=== PATIENT | male | born 1960 | race American Indian/Alaskan Native ===

== ENCOUNTER 2018-11-26 22:34 | Emergency (ER) | payer OTHER ==
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
[2018-11-26] MEDS ORDERED: NORCO 5/325 PO ONE (22:54)
[2018-11-26] MEDS ORDERED: ZOFRAN ODT PO ONE (22:54)
[2018-11-26] MEDS ORDERED: IBUPROFEN PO ONE (22:54)
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
[2018-11-27 01:59] VITALS: BP 178/123
== END 2018-11-27 02:08 | disposition home or self-care (01) ==
LOC: ED 22:34
DX: S29.012A Strain of muscle and tendon of back wall of thorax, initial encounter (principal); S16.1XXA Strain of muscle, fascia and tendon at neck level, initial encounter; S46.911A Strain of unspecified muscle, fascia and tendon at shoulder and upper arm level, right arm, initial encounter; S86.812A Strain of other muscle(s) and tendon(s) at lower leg level, left leg, initial encounter; V49.49XA Driver injured in collision with other motor vehicles in traffic accident, initial encounter; Y93.89 Activity, other specified; Y92.410 Unspecified street and highway as the place of occurrence of the external cause; Y99.8 Other external cause status
CPT/HCPCS: 72040; 72070; 72100; Q0162

== ENCOUNTER 2021-12-23 14:35 | Outpatient (CLI) | payer MEDICARE, OTHER ==
--- NOTE | 2021-12-24 08:51 | Ultrasound Report ---
ULTRASOUND TESTICULAR DOPPLER COMPLETE HISTORY: N50.8 SCROTAL PAIN. TECHNIQUE: Grayscale ultrasound with color and spectral Doppler imaging performed. COMPARISON: None FINDINGS: The right testicle measures 3.4 x 2.3 x 2.6 cm. The left testicle measures 3.6 x 2.2 x 2.1 cm. There is no evidence for testicular mass, cyst or calcifications. Spectral Doppler waveforms demonstrate ar terial flow to both testicles. Color Doppler imaging suggest mild hyperemia to the left testicle comp ared to the right. The epididymides are normal size and contour. A 5 mm right epididymal head cyst is identified. No hyp eremia of the epididymides is suspected to suggest epididymitis. Small to medium bilateral hydroceles are identified containing debris. No septation. No significant varicocele. IMPRESSION: No evidence for mass or torsion. Color Doppler imaging suggest mild hyperemia involving the left testicle, left orchitis could be cons idered. Please correlate with the patient's clinical presentation. Small to medium bilateral slightly complex hydroceles containing debris. 5 mm right epididymal head cyst. Signer Name: Dwight Santana Jr, MD Signed: 12/24/2021 8:47 AM Workstation Name: [id number]
== END 2021-12-23 14:36 | disposition home or self-care (01) ==
LOC: US 14:35
PROVIDERS: ATTEND Urology
DX: L72.0 Epidermal cyst (principal)
CPT/HCPCS: 93975

== ENCOUNTER 2022-02-25 06:33 | Day surgery (SDC) | payer MEDICARE ==
[2022-02-25] MEDS ORDERED: ONDANSETRON 4 MG/2 ML INJ IV PRN (08:20)
[2022-02-25] MEDS ORDERED: HYDROmorphone 0.5 MG/0.5 ML INJ IV PRN (08:20)
--- NOTE | 2022-02-25 08:21 | Anesthesia Day of Surgery ---
Anesthesia Day of Surgery - Day of Surgery Patient Examined: Yes Patient H&P Reviewed: Yes Patient is NPO: Yes
--- NOTE | 2022-02-25 08:22 | Anesthesia Consultation ---
Anesthesia Consult and Med Hx Date of service: 02/25/22 - Airway Anesthetic Teeth Evaluation: Good (Some missing) ROM Head & Neck: Adequate Mental/Hyoid Distance: Adequate Mallampati Class: Class II Intubation Access Assessment: Good - Pre-Operative Health Status ASA Pre-Surgery Classification: ASA2 Proposed Anesthetic Plan: General - Pulmonary Hx Smoking: No Hx Respiratory Symptoms: Yes (Chronic bronchitis; uses MDI prn) Hx Sleep Apnea: No - Cardiovascular System Hx Hypertension: Yes (Pt very active-goes to gym) - Gastrointestinal Hx Gastroesophageal Reflux Disease: No - Hematic Hx Sickle Cell Disease: No - Other Systems Hx Obesity: Yes
[2022-02-25] MEDS ORDERED: ceFAZolin/Water 2 GM/20 ML 2 GM/20 ML SYRINGE IV ONE (08:24)
[2022-02-25] MEDS ORDERED: propofoL 200 MG/20 ML VIAL IV ONE (08:36)
[2022-02-25] MEDS ORDERED: fentaNYL 100 MCG/2 ML INJ ONE (08:36)
[2022-02-25] MEDS ORDERED: LIDOCAINE MPF (2%) 20 MG/1 ML VIAL 5 ML ONE (08:36)
[2022-02-25] MEDS ORDERED: LACTATED RINGERS 1,000 ML IV SCH (09:00)
[2022-02-25] MEDS ORDERED: ePHEDrine SULFATE 50 MG/1 ML INJ ONE (09:30)
[2022-02-25] MEDS ORDERED: GLYCOPYRROLATE 0.4 MG/2 ML INJ ONE (09:51)
[2022-02-25] MEDS ORDERED: LACTATED RINGERS 1,000 ML ONE (09:56)
[2022-02-25] MEDS ORDERED: SODIUM CHLORIDE 0.9% IRR 1,500 ML BOTTLE IR ONE (10:00)
--- NOTE | 2022-02-25 10:17 | Short Stay Summary ---
Short Stay Documentation Date of service: 02/25/22 - History H&P: obtained from office - Allergies and Medications Current Medications: Allergies No Known Allergies Allergy (Unverified 11/26/18 22:38) Home Medications Medication Instructions Recorded Confirmed Last Taken Type Cyclobenzaprine [Flexeril] 10 mg PO TID PRN #20 tablet 11/26/18 Unknown Rx HYDROcodone/ACETAMINOPHEN [[place] 1 each PO Q6H PRN #10 tablet 11/26/18 Unknown Rx 5-325 Tablet] Ibuprofen 800 mg PO Q6H PRN #15 tablet 11/26/18 Unknown Rx Active Medications Hydromorphone HCl (Hydromorphone 0.5 Mg/0.5 Ml Inj) 0.25 mg IV Q10MIN PRN PRN Reason: Pain, Moderate (4-6) Stop: 02/25/22 20:00 Hydromorphone HCl (Hydromorphone 0.5 Mg/0.5 Ml Inj) 0.5 mg IV Q10MIN PRN PRN Reason: Pain , Severe (7-10) Stop: 02/25/22 20:00 Lactated Ringer's (Lactated Ringers) 1,000 mls @ 125 mls/hr IV DIRECT [place] - Brief post op/procedure progress note Date of procedure: 02/25/22 Pre-op diagnosis: bilat hyroceles Post-op diagnosis: same Procedure: bilat hydrocelectomy with barbara Anesthesia: GETA Surgeon: VERITO SMITH Estimated blood loss: minimal Pathology: list (sac x 2) Specimen disposition: to lab Condition: stable - Hospital course Hospital course: norco on chart - Disposition Condition at discharge: Stable Disposition: 01 HOME / SELF CARE / HOMELESS Short Stay Discharge Plan Follow up with: RONEY CLEMENTE MD [Primary Care Provider] - 7 Days
[2022-02-25] MEDS ORDERED: ceFAZolin/STERILE WATER 2 GM/20 ML SYRINGE IV NR (10:30)
[2022-02-25] MEDS ORDERED: KETOROLAC 30 MG/1 ML INJ ONE (10:36)
[2022-02-25] MEDS ORDERED: dexAMETHasone 20 MG/5 ML VIAL ONE (10:36)
[2022-02-25] MEDS ORDERED: ONDANSETRON 4 MG/2 ML INJ ONE (10:36)
--- NOTE | 2022-02-25 10:45 | Operative Report ---
DATE OF SURGERY: 02/25/2022 PREOPERATIVE DIAGNOSIS: Bilateral hydroceles. POSTOPERATIVE DIAGNOSIS: Bilateral hydroceles. PROCEDURE: Bilateral hydrocelectomy with [place] drain. SURGEON: Vasyl Orta MD ANESTHESIA: General. ESTIMATED BLOOD LOSS: Minimal. FLUIDS: Crystalloid. COMPLICATIONS: No complications. INDICATIONS: This 61-year-old gentleman seen in the office. He states it is not swollen. Exam was consistent with soft masses. Ultrasound confirmed bilateral hydroceles. Risks, benefits, complications were explained. The patient agreed to proceed with surgical intervention. He is aware he may end up with a drain to facilitate complete drainage. DESCRIPTION OF PROCEDURE: The patient was taken to the operative suite, placed in a supine position. After adequate general anesthesia, he was prepped and draped in a sterile fashion. A transscrotal incision was made with a Bovie. Sharp dissection was taken down to the tunica vaginalis. Left side had a golf ball sized hydrocele. It was opened. Serosanguineous fluid was evacuated. Hydrocele sac was excised, running whipstitch using 2-0 chromic in a running fashion was performed. Testicle appeared viable. Similar procedure was performed on the right side without difficulty. A half inch Kasandra drain was brought out through the incision bilaterally secured to the skin with a 2-0 chromic in interrupted fashion. A running 2-0 Vicryl stitch was used to close the dartos layer, 3-0 chromic interrupted was used to close the skin. The patient tolerated the procedure well. Fluffs and mesh pants were used. He was extubated and taken to recovery room. He will go home on [place] and follow up in the office. TID: [id number] RECEIPT: [id number] [facility]
[2022-02-25] MEDS: HYDROmorphone 0.5 MG/0.5 ML INJ IV PRN ×2 (10:48→10:58)
[2022-02-25] MEDS ORDERED: HYDROcodone/ACETAMINOPHEN 5-325 MG TAB PO PRN (11:05)
[2022-02-25 11:52] VITALS: BP 138/84
--- NOTE | 2022-02-25 16:05 | Post Anesthesia Evaluation ---
- Post Anesthesia Evaluation Patient Participated: Yes Airway Patent: Yes Stable Respiratory Function: Yes Nausea/Vomiting: No Temp > 96.8F: Yes Pain Manageable: Yes Adequeate Hydration: Yes Anesthesia Complications: No Block Receding Appropriately: Not Applicable Patient on Ventilator: No
== END 2022-02-25 12:00 | disposition home or self-care (01) ==
LOC: OR 06:33
PROVIDERS: ATTEND Urology
DX: N43.2 Other hydrocele (principal); I10 Essential (primary) hypertension; E66.9 Obesity, unspecified; Z68.32 Body mass index [BMI] 32.0-32.9, adult; Z79.899 Other long term (current) drug therapy
CPT/HCPCS: 55041; 88302; J0690; J1100; J1170; J1815; J1885; J2405; J2704; J3010; J3490; J7120